=== PATIENT | male | born 1940 | race African-American/Black ===

== ENCOUNTER 2020-11-17 22:46 | Emergency (ER) | payer OTHER ==
[2020-11-17 23:38] VITALS: TEMP 98.2; BMI 27.8
[2020-11-17 23:51] LABS: BASO % 1.3 % (0-2.0); EOS % 0.9 % (0-4.5); HEMATOCRIT 40.3 % (35.4-49); HEMOGLOBIN 13.7 GM/dL (11.7-16.9); LYMPH % 34.5 % (8-40); MCH 31.9 pg (25.7-33.7); MEAN CELL VOLUME 93.7 fl (80-96); MEAN PLT VOLUME 8.4 fl (7.5-11.1); MONO % 12.1 % (3.8-10.2); NEUT % 51.2 % (42.8-82.8); PLATELET COUNT 236 K/MM3 (134-434); WHITE BLOOD COUNT 6.2 K/mm3 (4.0-10.0)
[2020-11-18 00:03] LABS: INR 1.07 (0.83-1.09); PROTHROMBIN TIME (PATIENT) 12.9 SEC (9.7-13.0)
[2020-11-18 00:06] LABS: ACTIVATED PTT 32.7 SECONDS (25.2-36.5)
[2020-11-18 00:46] LABS: CHLORIDE 106 mmol/L (98-107); POTASSIUM 4.4 mmol/L (3.5-5.1); SODIUM 141 mmol/L (136-145)
[2020-11-18 00:48] LABS: CALCIUM 9.1 mg/dL (8.5-10.1)
[2020-11-18 00:49] LABS: ALBUMIN 3.7 g/dl (3.4-5.0); ANION GAP 7 MMOL/L (8-16); BLOOD UREA NITROGEN 22.1 mg/dL (7-18); CO2 28 mmol/L (21-32); GLUCOSE,RANDOM 132 mg/dL (74-106); MAGNESIUM 2.1 mg/dL (1.8-2.4)
[2020-11-18 00:52] LABS: CREATININE 1.4 mg/dL (0.55-1.3); SGOT/AST 16 U/L (15-37); SGPT/ALT 26 U/L (13-61)
[2020-11-18 00:54] LABS: BILIRUBIN,TOTAL 0.5 mg/dL (0.2-1); TOT PROT 7.2 g/dl (6.4-8.2)
[2020-11-18 00:55] LABS: ALK PHOS 91 U/L (45-117)
[2020-11-18 03:44] VITALS: BP 152/72; PULSE 62
== END 2020-11-18 04:09 | disposition home or self-care (01) ==
LOC: JER 22:46
DX: R07.9 Chest pain, unspecified (principal)
CPT/HCPCS: 36415; 71045-TC-FY; 80053; 83735; 84484; 85025; 85610; 85730; 93005; 93010; 99282-25; C9803; U0003

== ENCOUNTER 2023-01-30 09:39 | Emergency (ER) | payer OTHER ==
[2023-01-30 09:50] VITALS: RESP 18; TEMP 97.7; BMI 26.1
[2023-01-30] MEDS ORDERED: ACETAMINOPHEN 325 MG TABLET (FP) PO ONE (10:48)
[2023-01-30] MEDS ORDERED: ACETAMINOPHEN 325 MG TABLET (FP) ONE (10:52)
[2023-01-30 11:33] LABS: BASO % 0.3 % (0-2.0); EOS % 2.6 % (0-4.5); HEMATOCRIT 38.1 % (35.4-49); HEMOGLOBIN 13.1 GM/dL (11.7-16.9); LYMPH % 31.8 % (8-40); MCH 32.2 pg (25.7-33.7); MCHC 34.5 g/dl (32.0-35.9); MEAN CELL VOLUME 93.4 fl (80-96); MONO % 11.6 % (3.8-10.2); NEUT % 53.7 % (42.8-82.8); PLATELET COUNT 266 10^3/uL (134-434); RBC 4.08 M/mm3 (4.00-5.60); RDW 12.6 % (11.9-15.9); WHITE BLOOD COUNT 5.1 K/mm3 (4.0-10.0)
[2023-01-30 12:03] LABS: POTASSIUM 4.7 mmol/L (3.5-5.1)
[2023-01-30 12:05] LABS: ALBUMIN 3.8 g/dl (3.4-5.0); CALCIUM 9.9 mg/dL (8.5-10.1)
[2023-01-30 12:06] LABS: BLOOD UREA NITROGEN 17.2 mg/dL (7-18)
[2023-01-30 12:08] LABS: CREATININE 1.3 mg/dL (0.55-1.3)
[2023-01-30 12:10] LABS: BILIRUBIN,TOTAL 0.6 mg/dL (0.2-1); TOT PROT 7.3 g/dl (6.4-8.2)
[2023-01-30 12:13] LABS: N-TERMINAL BNP 104.1 pg/ml (5-450)
[2023-01-30 13:38] VITALS: BP 148/68; PULSE 60
== END 2023-01-30 13:53 | disposition home or self-care (01) ==
LOC: JER 09:39
DX: M79.642 Pain in left hand (principal); R22.43 Localized swelling, mass and lump, lower limb, bilateral; R42 Dizziness and giddiness; W19.XXXA Unspecified fall, initial encounter
CPT/HCPCS: 36415; 70450-TC; 71046-TC-FY; 73130-TC-LT-FY; 80053; 83880; 84484; 85025; 93970-TC; 99285-25

== ENCOUNTER 2023-09-24 12:50 | Emergency (ER) | payer OTHER ==
[2023-09-24 14:52] VITALS: BP 135/68; PULSE 68; RESP 18; TEMP 98.7; BMI 26.8
[2023-09-24] MEDS ORDERED: ACETAMINOPHEN 1000 MG/100 ML BAG IVPB ONE (14:56)
[2023-09-24] MEDS ORDERED: ACETAMINOPHEN INJECTION 100 ML IVPB ONE (15:09)
[2023-09-24] MEDS ORDERED: ALBUTEROL SO4 2.5/IPRATROPIUM 0.5 INH SOL 3 ML VIAL.NEB. NEB ONE (15:09)
[2023-09-24] MEDS: ALBUTEROL SO4 2.5/IPRATROPIUM 0.5 INH SOL 3 ML VIAL.NEB. NEB SCH (15:18)
[2023-09-24] MEDS ORDERED: DEXAMETHASONE 4 MG TABLET (FP) PO ONE (15:22)
[2023-09-24] MEDS ORDERED: DEXAMETHASONE 4 MG TABLET (FP) ONE (15:29)
[2023-09-24 16:28] LABS: EPI CELLS 2 /uL (0-25.1); HYALINE CASTS 1 /uL (0-3.1); URINE APPEARANCE CLEAR; URINE BILIRUBIN NEGATIVE (NEGATIVE); URINE COLOR YELLOW; URINE GLUCOSE (UA) NEGATIVE (NEGATIVE); URINE KETONE NEGATIVE (NEGATIVE); URINE LEUK ESTERASE 2+ (NEGATIVE); URINE NITRITE POSITIVE (NEGATIVE); URINE PROTEIN NEGATIVE (NEGATIVE); URINE RBC 14 /uL (0-23.9); URINE UROBILINOGEN 0.2 mg/dL (0.2-1.0); URINE WBC 221 /uL (0-25.8)
[2023-09-24 16:32] LABS: BASO % 0.3 % (0-2.0); EOS % 1.1 % (0-4.5); HEMATOCRIT 43.5 % (35.4-49); HEMOGLOBIN 14.5 GM/dL (11.7-16.9); LYMPH % 19.6 % (8-40); MCH 31.5 pg (25.7-33.7); MCHC 33.3 g/dl (32.0-35.9); MEAN CELL VOLUME 94.6 fl (80-96); MEAN PLT VOLUME 8.3 fl (7.5-11.1); MONO % 16.4 % (3.8-10.2); NEUT % 62.6 % (42.8-82.8); PLATELET COUNT 249 10^3/uL (134-434); RDW 12.2 % (11.9-15.9); WHITE BLOOD COUNT 10.4 K/mm3 (4.0-10.0)
[2023-09-24 16:41] LABS: POTASSIUM 3.5 mmol/L (3.5-5.1)
[2023-09-24 16:43] LABS: BLOOD UREA NITROGEN 20.2 mg/dL (7-18); CALCIUM 10.2 mg/dL (8.5-10.1)
[2023-09-24 16:47] LABS: CREATININE 1.5 mg/dL (0.55-1.3); URINE BACTERIA 103.2 /uL (0-1359)
[2023-09-24 16:48] LABS: BILIRUBIN,TOTAL 1.1 mg/dL (0.2-1); TOT PROT 7.6 g/dl (6.4-8.2)
== END 2023-09-24 18:00 | disposition home or self-care (01) ==
LOC: JER 12:50
PROC: 3E033NZ Introduction of Analgesics, Hypnotics, Sedatives into Peripheral Vein, Percutaneous Approach (ICD-10-PCS; principal; 2023-09-24)
PROC: 3E0F7GC Introduction of Other Therapeutic Substance into Respiratory Tract, Via Natural or Artificial Opening (ICD-10-PCS; 2023-09-24)
DX: R53.1 Weakness (principal); R09.81 Nasal congestion; R05.1 Acute cough; J40 Bronchitis, not specified as acute or chronic; R05.9 Cough, unspecified; R06.00 Dyspnea, unspecified; U07.1 COVID-19
CPT/HCPCS: 0241U-QW; 36415; 71045-TC-FY; 80053; 81003; 84484; 85025; 87086; 87186; 93005; 93010; 99285-25

== ENCOUNTER 2024-03-22 09:46 | Emergency (ER) | payer OTHER ==
[2024-03-22 10:25] VITALS: BP 128/70; PULSE 64; RESP 19; TEMP 98.3; BMI 28.7
[2024-03-22 11:37] LABS: BASO % 0.2 % (0-2.0); EOS % 1.2 % (0-4.5); HEMATOCRIT 40.2 % (35.4-49); HEMOGLOBIN 13.8 GM/dL (11.7-16.9); LYMPH % 37.9 % (8-40); MCH 32.1 pg (25.7-33.7); MCHC 34.4 g/dl (32.0-35.9); MEAN CELL VOLUME 93.2 fl (80-96); MEAN PLT VOLUME 7.5 fl (7.5-11.1); MONO % 10.6 % (3.8-10.2); NEUT % 50.1 % (42.8-82.8); PLATELET COUNT 271 10^3/uL (134-434); RBC 4.32 M/mm3 (4.00-5.60); RDW 12.3 % (11.9-15.9); WHITE BLOOD COUNT 4.9 K/mm3 (4.0-10.0)
[2024-03-22] MEDS ORDERED: ACETAMINOPHEN INJECTION 100 ML IVPB ONE (11:52)
[2024-03-22] MEDS: ACETAMINOPHEN 1000 MG/100 ML BAG IVPB ONE (11:55)
[2024-03-22 11:56] LABS: POTASSIUM 4.3 mmol/L (3.5-5.1)
[2024-03-22 11:58] LABS: BLOOD UREA NITROGEN 16.7 mg/dL (7-18); CALCIUM 9.8 mg/dL (8.5-10.1); MAGNESIUM 2.3 mg/dL (1.8-2.4)
[2024-03-22 11:59] LABS: ALBUMIN 3.9 g/dl (3.4-5.0)
[2024-03-22 12:01] LABS: CREATININE 1.4 mg/dL (0.55-1.3)
[2024-03-22 12:03] LABS: BILIRUBIN,TOTAL 0.8 mg/dL (0.2-1); TOT PROT 7.1 g/dl (6.4-8.2)
[2024-03-22 13:19] LABS: EPI CELLS 3 /uL (0-25.1); HYALINE CASTS 8 /uL (0-3.1); PH,URINE 6.5 (5.0-8.0); URINE APPEARANCE CLOUDY; URINE BACTERIA >9,000 /uL (0-1359); URINE BILIRUBIN NEGATIVE (NEGATIVE); URINE COLOR YELLOW; URINE GLUCOSE (UA) NEGATIVE (NEGATIVE); URINE KETONE NEGATIVE (NEGATIVE); URINE LEUK ESTERASE 3+ (NEGATIVE); URINE NITRITE POSITIVE (NEGATIVE); URINE PROTEIN NEGATIVE (NEGATIVE); URINE UROBILINOGEN 0.2 mg/dL (0.2-1.0); URINE WBC 433 /uL (0-25.8)
[2024-03-22 13:43] LABS: URINE RBC 375.3 /uL (0-23.9)
[2024-03-22] MEDS ORDERED: CEPHALEXIN MONOHYDRATE 500 MG CAPSULE (UD) ONE (14:41)
[2024-03-22] MEDS: CEPHALEXIN MONOHYDRATE 500 MG CAPSULE (UD) PO ONE (14:44)
== END 2024-03-22 14:14 | disposition home or self-care (01) ==
LOC: JER 09:46
PROC: 3E033NZ Introduction of Analgesics, Hypnotics, Sedatives into Peripheral Vein, Percutaneous Approach (ICD-10-PCS; principal; 2024-03-22)
DX: R10.31 Right lower quadrant pain (principal); N30.00 Acute cystitis without hematuria
CPT/HCPCS: 36415; 80053; 81003; 83605; 83690; 83735; 85025; 87086; 87186; 96374; 99284-25; J0131

== ENCOUNTER 2024-05-25 10:24 | Emergency (ER) | payer OTHER ==
[2024-05-25 10:31] VITALS: BMI 26.9
[2024-05-25 11:48] LABS: BASO % 0.1 % (0-2.0); EOS % 0.6 % (0-4.5); HEMATOCRIT 41.8 % (35.4-49); HEMOGLOBIN 14.5 GM/dL (11.7-16.9); LYMPH % 37.6 % (8-40); MCHC 34.6 g/dl (32.0-35.9); MEAN CELL VOLUME 92.5 fl (80-96); MEAN PLT VOLUME 7.5 fl (7.5-11.1); MONO % 11.1 % (3.8-10.2); NEUT % 50.6 % (42.8-82.8); PLATELET COUNT 272 10^3/uL (134-434); RBC 4.52 M/mm3 (4.00-5.60); RDW 12.4 % (11.9-15.9); WHITE BLOOD COUNT 5.2 K/mm3 (4.0-10.0)
[2024-05-25 11:58] LABS: INR 1.13 (0.83-1.09); PROTHROMBIN TIME (PATIENT) 12.9 SEC (9.7-13.0)
[2024-05-25 12:00] LABS: ACTIVATED PTT 32.8 SECONDS (25.2-36.5)
[2024-05-25 12:02] LABS: POTASSIUM 4.2 mmol/L (3.5-5.1)
[2024-05-25 12:04] LABS: ALBUMIN 4.3 g/dl (3.4-5.0); CALCIUM 10.5 mg/dL (8.5-10.1)
[2024-05-25 12:05] LABS: BLOOD UREA NITROGEN 15.9 mg/dL (7-18); MAGNESIUM 2.3 mg/dL (1.8-2.4)
[2024-05-25 12:08] LABS: CREATININE 1.5 mg/dL (0.55-1.3)
[2024-05-25 12:09] LABS: BILIRUBIN,TOTAL 0.9 mg/dL (0.2-1); TOT PROT 7.6 g/dl (6.4-8.2)
[2024-05-25 13:08] LABS: HIV INTERPRETATION NEGATIVE (NEGATIVE)
[2024-05-25 14:31] VITALS: BP 142/64; PULSE 73; RESP 20; TEMP 98
== END 2024-05-25 14:31 | disposition home or self-care (01) ==
LOC: JER 10:24
DX: R53.1 Weakness (principal); R06.02 Shortness of breath; Z20.822 Contact with and (suspected) exposure to COVID-19
CPT/HCPCS: 0241U-QW; 36415; 71046-TC-FY; 80053; 83735; 83880; 84484; 85025; 85610; 85730; 86803; 87389; 93005; 93010; 99285-25

== ENCOUNTER 2025-04-28 14:48 | Emergency (ER) | payer OTHER ==
[2025-04-28 15:53] VITALS: RESP 18; BMI 28.4
[2025-04-28 16:23] LABS: ABSOLUTE IMMATURE GRANULOCYTES 0.03 x10^3/uL (0.0-0.031); BASOPHILS # 0.02 x10^3/uL (0.01-0.08); EOSINOPHIL % 7.5 % (0.8-7.0); EOSINOPHILS # 0.58 x10^3/uL (0.04-0.54); MCHC 33.2 g/dl (32.3-36.5); MEAN CELL VOLUME 95.0 fl (79.0-92.2); MEAN PLT VOLUME 9.2 fl (9.4-12.4); MONOCYTE # 0.80 x10^3/uL (0.30-0.82); MONOCYTE % 10.4 % (5.3-12.2); RDW 11.4 % (12.6-16.6)
[2025-04-28 16:31] LABS: INR 1.27 (0.83-1.09); PROTHROMBIN TIME (PATIENT) 14.0 SEC (9.7-13.0)
[2025-04-28 16:33] LABS: ACTIVATED PTT 33.8 SECONDS (25.2-36.5)
[2025-04-28 16:43] LABS: CO2 31.0 mmol/L (21-32); GLUCOSE,RANDOM 117.0 mg/dL (74-106)
[2025-04-28 16:46] LABS: CREATININE 1.5 mg/dL (0.55-1.3); SGOT/AST 16.0 U/L (15-37); SGPT/ALT 23.0 U/L (13-61)
[2025-04-28 16:48] LABS: TOT PROT 7.0 g/dl (6.4-8.2)
[2025-04-28 16:49] VITALS: TEMP 98.7
[2025-04-28 16:49] LABS: ALK PHOS 112.0 U/L (45-117)
[2025-04-28] MEDS ORDERED: LIDOCAINE 5% TOPICAL PATCH ONE (17:17)
[2025-04-28] MEDS: LIDOCAINE 5% TOPICAL PATCH TP ONE (17:20)
[2025-04-28] MEDS ORDERED: ACETAMINOPHEN 325 MG TABLET (FP) ONE (17:45)
[2025-04-28] MEDS: ACETAMINOPHEN 325 MG TABLET (FP) PO ONE (17:49)
[2025-04-28 19:56] VITALS: BP 115/56; PULSE 58
[2025-04-28] MEDS ORDERED: LIDOCAINE PATCH REMOVAL MC SCH (22:00)
[2025-04-30 17:37] LABS: HIV INTERPRETATION NEGATIVE (NEGATIVE)
[2025-05-02 03:23] LABS: HCV DIAGNOSTIC IN-HOUSE W/RFLX NON-REACTIVE (NONREACTIVE)
== END 2025-04-28 20:35 | disposition home or self-care (01) ==
LOC: JER 14:48
DX: R07.81 Pleurodynia (principal); R91.1 Solitary pulmonary nodule
CPT/HCPCS: 36415; 71045-TC-FY; 71275-TC; 80053; 84484; 85025; 85610; 85730; 86803; 86850; 86900; 86901; 87389; 99285-25; Q9967